=== PATIENT | female | born 1975 | race Caucasian/White ===

== ENCOUNTER 2017-04-18 15:05 | Emergency (ER) | payer OTHER ==
[~2017-04-18] VITALS: Ht 177.8 cm; Wt 74.6 kg
[~2017-04-18 15:05] MED LIST: ACETAMINOPHEN325 M1; AMOXICILLIN500 M1 PO; BACTRIM DS TAB1 EACH PO; CLEOCIN HCL150 MG PO; ESTRACE0.5 MG PO; HYDROCODONE-AP1 EAC6 PO; IBUPROFEN 400400 M2; IBUPROFEN 800800 M1 PO; KEFLEX500 MG PO; NORCO 5-325 TA1 EACH PO; PHENERGAN 25 MG25 M1 PO
[2017-04-18] MEDS ORDERED: NORCO 5-325 TA1 EACH PO (16:53)
[2017-04-18 17:40] VITALS: BP 125/84
== END 2017-04-18 17:40 | disposition home or self-care (01) ==
LOC: M.ERS 15:05
DX: S52.202A Unspecified fracture of shaft of left ulna, initial encounter for closed fracture (principal); F17.210 Nicotine dependence, cigarettes, uncomplicated; Z86.14 Personal history of Methicillin resistant Staphylococcus aureus infection; Z90.710 Acquired absence of both cervix and uterus; W00.0XXA Fall on same level due to ice and snow, initial encounter; Y93.89 Activity, other specified; Y92.89 Other specified places as the place of occurrence of the external cause; Y99.8 Other external cause status

== ENCOUNTER 2017-07-08 11:23 | Emergency (ER) | payer OTHER ==
[~2017-07-08] VITALS: Ht 175.3 cm; Wt 68.0 kg
[2017-07-08] MEDS ORDERED: TYLENOL EXTRA500 MG PO (11:37)
[2017-07-08] MEDS ORDERED: IBUPROFEN 800800 M1 PO (12:21)
[2017-07-08] MEDS ORDERED: HYDROCODONE-AP1 EAC6 PO (12:21)
[2017-07-08 12:31] VITALS: BP 139/98
== END 2017-07-08 13:00 | disposition home or self-care (01) ==
LOC: M.ERS 11:23
DX: S52.592A Other fractures of lower end of left radius, initial encounter for closed fracture (principal); S52.692A Other fracture of lower end of left ulna, initial encounter for closed fracture; M54.9 Dorsalgia, unspecified; G89.29 Other chronic pain; F17.210 Nicotine dependence, cigarettes, uncomplicated; Z86.14 Personal history of Methicillin resistant Staphylococcus aureus infection; Z90.710 Acquired absence of both cervix and uterus; W18.39XA Other fall on same level, initial encounter; Y93.89 Activity, other specified; Y92.89 Other specified places as the place of occurrence of the external cause; Y99.8 Other external cause status

== ENCOUNTER 2019-09-27 10:42 | Emergency (ER) | payer OTHER ==
[~2019-09-27] VITALS: Ht 177.8 cm; Wt 68.0 kg
[~2019-09-27 10:42] MED LIST changes: +TYLENOL EXTRA500 MG PO
[2019-09-27] MEDS ORDERED: KEFLEX500 M1 PO (11:08)
[2019-09-27] MEDS ORDERED: BACTRIM DS TAB1 EACH PO (11:08)
[2019-09-27] MEDS ORDERED: PERCOCET 5-3251 EACH PO (11:08)
[2019-09-27 11:30] VITALS: BP 135/91
== END 2019-09-27 11:32 | disposition home or self-care (01) ==
LOC: M.ERS 10:42
DX: N61.0 Mastitis without abscess (principal); G89.29 Other chronic pain; F17.210 Nicotine dependence, cigarettes, uncomplicated; Z86.14 Personal history of Methicillin resistant Staphylococcus aureus infection; Z90.710 Acquired absence of both cervix and uterus

== ENCOUNTER 2019-10-01 14:02 | Observation (INO) | payer OTHER ==
[~2019-10-01] VITALS: Ht 175.3 cm; Wt 68.0 kg
[~2019-10-01 14:02] MED LIST changes: +KEFLEX500 M1 PO; +PERCOCET 5-3251 EACH PO
[2019-10-01 14:13] VITALS: BP 118/90
[2019-10-01 14:56] LABS: ABSOLUTE BASOPHILS 0.1 thou/uL (0.0-0.2); ABSOLUTE EOSINOPHILS 0.3 thou/uL (0.0-0.7); ABSOLUTE LYMPHOCYTES 1.1 thou/uL (0.8-5.3); ABSOLUTE MONOCYTES 0.6 thou/uL (0.0-1.2); ABSOLUTE NEUTROPHILS 6.6 thou/uL (1.6-8.1); BASOPHILS 0.6 %; EOSINOPHILS 3.7 %; HEMATOCRIT 38.5 % (37.0-47.0); HEMOGLOBIN 13.1 gm/dL (12.0-15.0); LYMPHOCYTES 12.6 %; MCH 31.1 pg (26.0-34.0); MCV 91.5 fL (80.0-100.0); MONOCYTES 7.3 %; NUCLEATED RBCS 0 /100WBC; PLATELET COUNT* 186 thou/uL (150-400); POLYS 75.8 %; RBC 4.21 mil/uL (4.20-5.00); RDW-CV 13.2 % (10.5-14.5); WBC 8.7 thou/uL (4.0-11.0)
[2019-10-01 15:04] LABS: CALCIUM 8.9 mg/dL (8.5-10.1); CREATININE 0.8 mg/dL (0.6-1.3); POTASSIUM 4.2 mmol/L (3.5-5.1)
[2019-10-01 15:09] LABS: ALBUMIN 3.2 g/dL (3.4-5.0); TOTAL BILIRUBIN 0.2 mg/dL (<0.1-1.0); TOTAL PROTEIN 7.2 g/dL (6.4-8.2)
[2019-10-01 17:25] VITALS: BP 115/76
[2019-10-01 17:53] VITALS: BP 134/86
[2019-10-01 20:00] VITALS: BP 118/81
[2019-10-02 04:51] LABS: HEMATOCRIT 36.9 % (37.0-47.0); HEMOGLOBIN 12.5 gm/dL (12.0-15.0); MCHC 33.9 g/dL (28.0-37.0); MCV 91.5 fL (80.0-100.0); MPV 10.2 fl. (7.2-11.1); NUCLEATED RBCS 0 /100WBC; PLATELET COUNT* 202 thou/uL (150-400); RBC 4.03 mil/uL (4.20-5.00); RDW-CV 12.9 % (10.5-14.5); WBC 7.8 thou/uL (4.0-11.0)
[2019-10-02 05:05] LABS: CALCIUM 9.1 mg/dL (8.5-10.1); CREATININE 0.8 mg/dL (0.6-1.3); POTASSIUM 4.7 mmol/L (3.5-5.1)
[2019-10-02 05:59] LABS: ABSOLUTE LYMPHOCYTES 0.8 thou/uL (0.8-5.3); ABSOLUTE MONOCYTES 0.2 thou/uL (0.0-1.2); ABSOLUTE NEUTROPHILS 6.9 thou/uL (1.6-8.1); PLATELET ESTIMATE ADEQUATE
[2019-10-02 06:00] LABS: ANISOCYTOSIS 1+; LARGE PLATELETS OCCASIONAL; POIKILOCYTOSIS 1+
[2019-10-02] MEDS ORDERED: BACTRIM DS TAB1 EACH PO (08:28)
[2019-10-02] MEDS ORDERED: KEFLEX500 M1 PO (08:28)
[2019-10-02] MEDS ORDERED: PERCOCET 5-3251 EACH PO (08:28)
[2019-10-02 08:40] VITALS: BP 111/60
[2019-10-02 09:54] VITALS: BP 118/81
--- NOTE | 2019-10-02 13:30 | OP ---
[address] [address] OPERATIVE REPORT Name: MILANARSALAN Room: [address] Fran#: [id number] Admission: 10/01/19 Attend Phys: Caio Arthur MD Discharge: Date of : 71 Report #: [id number] THIS REPORT FOR: //name// cc: RONNIE Olivo family physician/PCP RONNIE Olivo family physician/PCP ~ THIS REPORT FOR: //name// CC: Caio TRUJILLO physician/PCP DATE OF SERVICE: 10/01/2019 PREOPERATIVE DIAGNOSIS: Right breast abscess. POSTOPERATIVE DIAGNOSIS: Right breast abscess. OPERATIVE PROCEDURE: Incision and drainage, right breast. ANESTHESIA: Laryngeal mask with 0.5% Marcaine with epinephrine. DESCRIPTION OF PROCEDURE: The patient was placed in a supine position under laryngeal mask anesthesia, and the patient's right breast and axilla were carefully prepped and draped in a sterile fashion. A timeout was taken. IV Zosyn was administered. I began by palpating the nipple areolar complex from the 6 o'clock to 9 o'clock area. I infiltrated around that site and around the induration with 10 mL of 0.5% Marcaine with epinephrine. A curvilinear areolar incision of approximately 4 cm was created. A large amount of purulence was encountered and evacuated. Aerobic and anaerobic cultures were obtained. The wound bed was then carefully expressed for any loculations and explored with a hemostat. Once that was completed, I irrigated the open abscess cavity with 100 mL of saline and then I packed the wound with a strip of Aquacel Ag rope, covered it with gauze and tape, and ending the operative procedure. Estimated blood loss was 2 mL. Sponge and instrument counts correct. The patient was taken off laryngeal mask and returned to recovery in stable condition. <ELECTRONICALLY SIGNED> By: Tamika Siddiqui MD 10/02/19 [id number] Siddiqui MD /nt
[2019-10-02 14:54] VITALS: BP 118/81
[2019-10-02 15:54] VITALS: BP 118/81
== END 2019-10-02 15:58 | disposition home or self-care (01) ==
LOC: M.ERS 14:02 → M.TBA-ER 15:04 → M.ORTHSURG 15:04
PROVIDERS: Physician Assistant; ADMIT Internal Medicine; ATTEND Internal Medicine
DX: N61.1 Abscess of the breast and nipple (principal); R65.10 Systemic inflammatory response syndrome (SIRS) of non-infectious origin without acute organ dysfunction; F41.9 Anxiety disorder, unspecified; M54.9 Dorsalgia, unspecified; G89.29 Other chronic pain; F17.210 Nicotine dependence, cigarettes, uncomplicated

== ENCOUNTER 2020-01-04 10:34 | Emergency (ER) | payer OTHER ==
[~2020-01-04] VITALS: Ht 175.3 cm; Wt 68.0 kg
[2020-01-04] MEDS ORDERED: NORCO 5-325 TA1 EAC2 PO (11:23)
[2020-01-04] MEDS ORDERED: FLEXERIL PO (11:23)
[2020-01-04 11:34] VITALS: BP 116/73
== END 2020-01-04 11:35 | disposition home or self-care (01) ==
LOC: M.ERS 10:34
DX: M25.552 Pain in left hip (principal); F17.210 Nicotine dependence, cigarettes, uncomplicated; Z91.040 Latex allergy status; X58.XXXA Exposure to other specified factors, initial encounter; Y93.89 Activity, other specified; Y92.89 Other specified places as the place of occurrence of the external cause; Y99.0 Civilian activity done for income or pay

== ENCOUNTER 2020-02-22 09:14 | Emergency (ER) | payer OTHER ==
[~2020-02-22] VITALS: Ht 177.8 cm; Wt 68.0 kg
[~2020-02-22 09:14] MED LIST changes: +FLEXERIL PO; +NORCO 5-325 TA1 EAC2 PO
[2020-02-22] MEDS ORDERED: NORCO 5-325 TA1 EAC2 PO (10:00)
[2020-02-22 10:14] VITALS: BP 145/79
== END 2020-02-22 10:15 | disposition home or self-care (01) ==
LOC: M.ERS 09:14
DX: S82.61XA Displaced fracture of lateral malleolus of right fibula, initial encounter for closed fracture (principal); G89.29 Other chronic pain; F17.210 Nicotine dependence, cigarettes, uncomplicated; Z86.14 Personal history of Methicillin resistant Staphylococcus aureus infection; Z90.710 Acquired absence of both cervix and uterus; Z91.040 Latex allergy status; W10.8XXA Fall (on) (from) other stairs and steps, initial encounter; Y93.89 Activity, other specified; Y92.89 Other specified places as the place of occurrence of the external cause; Y99.8 Other external cause status